=== PATIENT | female | born 1945 | race Caucasian/White ===

== ENCOUNTER → 2016-03-20 | Outpatient (CLI) | payer OTHER, MEDICARE ==
--- NOTE | 2016-03-20 14:40 | MA ---
Left Diagnostic Mammogram dated March 20, 2016 Indication: Six-month follow up of probably benign dense superimposed fibroglandular tissue in the ou ter left breast. Technique: Full field digital CC and MLO views of the left breast. Comparison: Screening and diagnostic mammograms dating back to July 2010. Findings: The previously assessed asymmetry does not persist on the current study. The current 2017 m ammograms have a similar appearance to the July 2010 series. No mass or architectural distortion has d eveloped. Scattered benign calcifications are unchanged. Impression: Negative mammograms. No residual asymmetry. BI-RADS 1: Negative mammogram. Recommendation: Resume routine annual screening in September 2016 unless otherwise clinically indicated. T he patient was notified of the negative results and recommendations at time of study completion. [facility] will send a result letter to the patient.
== END ==
LOC: BMCIMAGING 13:44
DX: R92.2 Inconclusive mammogram (principal)
CPT/HCPCS: G0206

== ENCOUNTER 2016-07-11 11:11 | Emergency (ER) | payer OTHER, MEDICARE ==
--- NOTE | 2016-07-11 11:19 | EDPHY ---
H & P Time Seen by Provider: 07/11/16 11:18 HPI/ROS: CHIEF COMPLAINT: Presyncope HISTORY OF PRESENT ILLNESS: The patient presents to the emergency department with a history of presyncope. The patient's symptoms began after she woke up earlier today. She describes lightheadedness and blurry vision. The patient described mild sensation of vertigo. She felt as if she might lose consciousness but did not. The symptoms persisted which prompted her to call paramedics. They arrived and transported the patient to the ED for further evaluation. The patient has been bothered by some cough, rhinitis and nasal congestion increasing over the past several weeks which she attributes to cot hernandez around her forearm. The patient recently restarted taking Nasonex and Claritin. She is supposed to see an allergy network desktop support specialist later this week. The patient did see her primary care provider yesterday who did blood work which was unremarkable. The patient currently is asymptomatic and feeling better. She denies chest pain or shortness of breath. She had no history of the symptoms. The patient has no history of cardiac disease but does have diabetes and hyperlipidemia. REVIEW OF SYSTEMS: A comprehensive 10 point review of systems is otherwise negative aside from elements mentioned in the history of present illness. Source: Patient Exam Limitations: No limitations - Medical/Surgical History PMH: Past medical history includes diabetes, hyperlipidemia, hypertension - Family History Significant Family History: No pertinent family hx - Social History Smoking Status: Never smoked - Physical Exam Exam: General Appearance: Alert, no distress Eyes: Pupils equal and round no pallor or injection ENT, Mouth: Mucous membranes moist Respiratory: There are no retractions, lungs are clear to auscultation Cardiovascular: Regular rate and rhythm Gastrointestinal: Abdomen is soft and nontender, no masses, bowel sounds normal Neurological: A&O, normal motor function, normal sensory exam, normal cranial nerves Skin: Warm and dry, no rashes Musculoskeletal: Neck is supple nontender Extremities: symmetrical, full range of motion Constitutional: Initial Vital Signs Temperature (C) 37 C 07/11/16 11:11 Heart Rate 86 07/11/16 11:11 Respiratory Rate 16 07/11/16 11:11 Blood Pressure 178/83 H 07/11/16 11:11 O2 Sat (%) 95 07/11/16 11:11 O2 Delivery Mode Room Air Allergies/Adverse Reactions: No Known Allergies Allergy (Unverified 07/11/16 11:19) Home Medications: Medication Instructions Recorded Atorvastatin Calcium 07/11/16 Lisinopril 07/11/16 Metformin 1000 mg 07/11/16 Medical Decision Making - Diagnostics EKG Interpretation: EKG: Complete interpretation has been separately recorded in the [facility] archive. Summary impression: Sinus rhythm ED Course/Re-evaluation: The patient presents to the ED after an episode of presyncope earlier today. The patient arrives with a normal blood pressure heart rate. Her EKG demonstrates no evidence of ischemia. Her neurologic examination is normal. Patient does report decreased oral intake over the past week secondary to issues with her seasonal allergies. The patient did describe fairly typical symptoms of presyncope. The patient's laboratory studies are unremarkable. She has trace bacteria noted on her urinalysis. She has no symptoms of a UTI. The patient will be cultured and antibiotics withheld pending the results of the culture. The patient had multiple examinations in the ED by myself. She is ambulatory and in no acute distress. At this point time I do feel the patient can be discharged home and follow up with her primary care provider. She is instructed to return to the ED for any chest pain, shortness of breath, recurrent symptoms of presyncope, severe headache, focal neurologic symptoms or other concerns. Differential Diagnosis: Differential diagnosis considered includes arrhythmia, dehydration, anemia, urinary tract infection, metabolic abnormality - Data Points Laboratory Results: 07/11/16 07/11/16 Unknown 11:10 Troponin I < 0.012 ng/mL ng/mL (0-0.034) Urine RBC NONE SEEN /hpf /hpf (0-3) Urine WBC 1-3 /hpf /hpf (0-3) Ur Epithelial Cells TRACE /lpf /lpf (NONE-1+) Urine Bacteria TRACE /hpf H /hpf (NONE SEEN) Urine Mucus TRACE /lpf /lpf (NONE-1+) Medications Given: Discontinued Medications Sodium Chloride (Ns) 1,000 mls @ 0 mls/hr IV ONCE ONE PRN Reason: Wide Open Stop: 07/11/16 11:31 Last Admin: 07/11/16 11:38 Dose: 1,000 mls Departure - Departure Disposition: Home, Routine, Self-Care Clinical Impression: Pre-syncope Condition: Good Instructions: Near Syncope (ED) Additional Instructions: 1. Please follow-up with your allergy immunology physician as scheduled. 2. I believe your symptoms today likely were secondary to dehydration. Please try and increase your fluid intake. 3. Please follow up with your primary care provider as scheduled. 4. Please return to the emergency department for any chest pain, difficulty breathing, worsening symptoms or other concerns. Referrals: Jin Schulte MD [Primary Care Provider] - As per Instructions
[2016-07-11] MEDS ORDERED: NS 1,000 ML IV ONE (11:30)
--- NOTE | 2016-07-11 11:41 | CPEKG ---
Heart Rate: 86 RR Interval: 698 P-R Interval: 156 QRSD Interval: 82 QT Interval: 372 QTC Interval: 445 P [place]: 54 QRS [place]: 87 T Wave [place]: 50 EKG Severity - ABNORMAL ECG - EKG Impression: SINUS RHYTHM EKG Impression: PROBABLE INFERIOR INFARCT, OLD Electronically Signed By: Jose Luis Olivas 11-Jul-2016 14:38:17
[2016-07-11 12:30] VITALS: PULSE 78; TEMP 97.2
[2016-07-11 12:47] LABS: BACTERIA TRACE /hpf (NONE SEEN); MUCUS TRACE /lpf (NONE-1+); RBC,URINE NONE SEEN /hpf (0-3)
[2016-07-11 13:48] VITALS: BP 142/79; RESP 16; O2SAT 94
== END 2016-07-11 13:57 | disposition home or self-care (01) ==
LOC: EDUNIT#
DX: R55 Syncope and collapse (principal); E11.9 Type 2 diabetes mellitus without complications; I10 Essential (primary) hypertension; Z79.84 Long term (current) use of oral hypoglycemic drugs

== ENCOUNTER → 2016-09-16 | Outpatient (CLI) | payer OTHER, MEDICARE | LOC: BMCIMAGING 07:49 | PROVIDERS: ATTEND Internal Medicine | DX: Z12.31 Encounter for screening mammogram for malignant neoplasm of breast (principal) | CPT/HCPCS: G0202 ==

== ENCOUNTER → 2017-09-17 | Outpatient (CLI) | payer OTHER, MEDICARE | LOC: BMCIMAGING 09:14 | PROVIDERS: ATTEND Internal Medicine | DX: Z12.31 Encounter for screening mammogram for malignant neoplasm of breast (principal) ==

== ENCOUNTER → 2018-08-15 | Outpatient (CLI) | payer OTHER, MEDICARE | LOC: FIMAGING 14:52 ==